=== PATIENT | male | born 1980 | race Hispanic/Latino ===

== ENCOUNTER → 2017-05-31 | Outpatient (CLI) | payer SELFPAY ==
--- NOTE | 2017-05-31 17:38 | Diagnostic Imaging Report ---
PROCEDURE:X-RAY LUMBAR SPINE, TWO VIEWS COMPARISON:None. INDICATIONS:LOWER BACK PAIN FINDINGS: There are 5 lumbar-type vertebral bodies. Loss of the normal lumbar lordosis, which may be due to positioning or muscle spasm. The vertebral bodies are well-aligned without evidence of spondylolisthesis. No acute, displaced fractures, lytic or blastic lesions. The vertebral body and disc-space heights are well-maintained. The sacroiliac joints are unremarkable. Nonobstructive bowel gas pattern. CONCLUSION: Loss of the normal lumbar lordosis, which may be due to positioning or muscle spasm. No acute abnormalities. Kj Leon M.D. Dictated by: Kj Leon M.D. on 05/31/2017 at 17:38 Electronically approved by: Kj Leon M.D. on 05/31/2017 at 17:38
== END ==
LOC: RAD 16:15
PROVIDERS: ATTEND Family Medicine
DX: Z00.00 Encounter for general adult medical examination without abnormal findings (principal); M54.5 Low back pain
CPT/HCPCS: 72100